=== PATIENT | female | born 1970 | race Caucasian/White ===

== ENCOUNTER → 2017-12-07 09:33 | Outpatient (CLI) | payer OTHER, SELFPAY | DX: Z23 Encounter for immunization (principal) | CPT/HCPCS: 90471; 90686 ==

== ENCOUNTER → 2017-12-10 09:49 | Outpatient (CLI) | payer OTHER, SELFPAY ==
[2017-12-10 11:25] LABS: Add Manual Diff / Slide Review NO; Basophils Percent Auto 0.4 % (0-2); Eosinophils Percent Auto 1.8 % (2-4); Hemoglobin 12.5 g/dL (12.0-16.0); Mean Corpuscular HGB Conc 34.8 % (30-36); Mean Corpuscular Hemoglobin 30.5 PG (26-34); Mean Corpuscular Volume 87.6 fL (80-100); Monocytes Percent Auto 7.4 % (3-14); Neutrophils Absolute Auto 6500 /uL (3000-5900); Neutrophils Percent Auto 67.4 % (50-75); Platelet Count 335 X10^3/uL (150-400); Red Blood Cell Count 4.11 X10^6/uL (4.0-5.2); Red Cell Distribution Width 13.6 % (11.6-14.8); White Blood Cell Count 9.6 X10^3/uL (4.5-11.0)
[2017-12-10 11:38] LABS: Hemoglobin A1C% w Est Avg Glu 5.5 % (4.0-6.0)
[2017-12-10 11:51] LABS: Alanine Aminotransferase 33 IU/L (9-52); Albumin 4.5 g/dL (3.5-5.0); Albumin Globulin Ratio 1.5 (1.0-2.8); Alkaline Phosphatase 71 U/L (38-126); Aspartate Aminotransferase 27 IU/L (14-36); BUN Creatinine Ratio 21.7 (6-22); Bilirubin Total 0.5 mg/dL (0.2-1.3); Blood Urea Nitrogen 13 mg/dL (7-17); Carbon Dioxide 28 mmol/L (22-32); Chloride 101 mmol/L (98-107); Cholesterol 189 mg/dL (140-199); Estimated Glomerular Filt Rate > 60.0 mL/min (>60); Glucose 90 mg/dL (70-100); HDL Cholesterol 64 mg/dL (40-60); HEMOLYSIS < 15 (0-50); LDL Cholesterol Calculated 93 mg/dL (<100); Sodium 139 mmol/L (137-145); Total Protein 7.5 g/dL (6.3-8.2); Triglycerides 159 mg/dL (35-150)
== END ==
PROVIDERS: PCP Internal Medicine; Visit Provider Internal Medicine
DX: R73.02 Impaired glucose tolerance (oral) (principal); I10 Essential (primary) hypertension; E78.00 Pure hypercholesterolemia, unspecified
CPT/HCPCS: 36415; 80053; 80061; 83036; 85025

== ENCOUNTER → 2018-02-10 12:00 | Outpatient (CLI) | payer OTHER, SELFPAY ==
--- NOTE | 2018-02-10 | DI.MG.S_ITS ---
BILATERAL DIGITAL SCREENING MAMMOGRAM 3D/2D WITH CAD: 02/10/2018 CLINICAL: Routine screening. Comparison is made to exams dated: 03/05/2017 mammogram, 02/26/2016 mammogram - [facility], and 01/22/2015 mammogram - [facility]. The tissue of both breasts is heterogeneously dense. This may lower the sensitivity of mammography. Current study was also evaluated with a Computer Aided Detection (CAD) system. No significant masses, calcifications, or other findings are seen in either breast. There has been no significant interval change. IMPRESSION: NEGATIVE There is no mammographic evidence of malignancy. A 1 year screening mammogram is recommended. This exam was interpreted at Station ID: [id number]. NOTE: For mammograms, a report in lay terms will be sent to the patient. Approximately 15% of breast malignancies will not be visualized mammographically. In the management of a palpable breast mass, a negative mammogram must not discourage biopsy of a clinically suspicious lesion. Electronically Signed By: Manuel leger/tristin:02/10/2018 17:39:06 copy to: PIETER RODRIGUEZ letter sent: Normal Exam ACR BI-RADS Category 1: Negative 3341F
== END ==
PROVIDERS: Visit Provider Obstetrics & Gynecology
DX: Z12.31 Encounter for screening mammogram for malignant neoplasm of breast (principal)
CPT/HCPCS: 77063; 77067

== ENCOUNTER → 2018-10-27 08:50 | Outpatient (CLI) | payer OTHER, SELFPAY ==
[2018-10-27 09:13] LABS: Add Manual Diff / Slide Review NO; Basophils Absolute Auto 0 /uL (0-100); Basophils Percent Auto 0.4 % (0-2); Eosinophils Absolute Auto 200 /uL (0-450); Eosinophils Percent Auto 1.9 % (2-4); Hematocrit 40.2 % (36-46); Hemoglobin 13.6 g/dL (12.0-16.0); Lymphocytes Absolute Auto 1700 /uL (1100-4500); Lymphocytes Percent Auto 20.5 % (25-40); Mean Corpuscular HGB Conc 33.8 % (30-36); Mean Corpuscular Hemoglobin 29.4 PG (26-34); Mean Corpuscular Volume 86.9 fL (80-100); Monocytes Absolute Auto 600 /uL (0-900); Monocytes Percent Auto 7.5 % (3-14); Neutrophils Absolute Auto 5800 /uL (1500-7000); Neutrophils Percent Auto 69.7 % (50-75); Platelet Count 374 X10^3/uL (150-400); Red Blood Cell Count 4.62 X10^6/uL (4.0-5.2); Red Cell Distribution Width 13.8 % (11.6-14.8); White Blood Cell Count 8.3 X10^3/uL (4.5-11.0)
[2018-10-27 09:24] LABS: Hemoglobin A1C% w Est Avg Glu 5.5 % (4.0-6.0)
[2018-10-27 09:27] LABS: BUN Creatinine Ratio 26.7 (6-22); Blood Urea Nitrogen 16 mg/dL (7-17); Calcium 9.3 mg/dL (8.4-10.2); Carbon Dioxide 24 mmol/L (22-32); Chloride 100 mmol/L (98-107); Cholesterol 193 mg/dL (140-199); Estimated Glomerular Filt Rate > 60.0 mL/min (>60); Glucose 109 mg/dL (70-100); HDL Cholesterol 52 mg/dL (40-60); HEMOLYSIS < 15 (0-50); LDL Cholesterol Calculated 117 mg/dL (<100); Potassium 3.8 mmol/L (3.4-5.1); Sodium 136 mmol/L (137-145); Triglycerides 121 mg/dL (35-150)
[2018-10-27 10:08] LABS: TSH w/ Reflex to FT4 2.46 uIU/mL (0.47-4.68)
== END ==
PROVIDERS: Visit Provider Internal Medicine
DX: I10 Essential (primary) hypertension (principal); R73.01 Impaired fasting glucose; E03.9 Hypothyroidism, unspecified; R00.2 Palpitations
CPT/HCPCS: 36415; 80048; 80061; 83036; 84443; 85025

== ENCOUNTER → 2019-02-13 15:30 | Outpatient (CLI) | payer OTHER, SELFPAY ==
--- NOTE | 2019-02-13 | DI.MG.S_ITS ---
BILATERAL DIGITAL SCREENING MAMMOGRAM 3D/2D WITH CAD: 02/13/2019 CLINICAL: Routine screening. Comparison is made to exams dated: 02/10/2018 mammogram, 03/05/2017 mammogram, 02/26/2016 mammogram, 01/10/2015 mammogram, 01/08/2014 mammogram, and 01/06/2013 mammogram - [facility]. The tissue of both breasts is heterogeneously dense. This may lower the sensitivity of mammography. Current study was also evaluated with a Computer Aided Detection (CAD) system. No significant masses, calcifications, or other findings are seen in either breast. There has been no significant interval change. IMPRESSION: NEGATIVE There is no mammographic evidence of malignancy. A 1 year screening mammogram is recommended. This exam was interpreted at Station ID: [id number]. NOTE: For mammograms, a report in lay terms will be sent to the patient. Approximately 15% of breast malignancies will not be visualized mammographically. In the management of a palpable breast mass, a negative mammogram must not discourage biopsy of a clinically suspicious lesion. Electronically Signed By: Slim romero/tristin:02/13/2019 18:12:33 copy to: PIETER RODRIGUEZ letter sent: Normal Exam ACR BI-RADS Category 1: Negative 3341F
== END ==
PROVIDERS: Visit Provider Obstetrics & Gynecology
DX: Z12.31 Encounter for screening mammogram for malignant neoplasm of breast (principal)
CPT/HCPCS: 77063; 77067

== ENCOUNTER → 2019-05-12 15:05 | Outpatient (CLI) | payer OTHER, SELFPAY ==
--- NOTE | 2019-05-12 15:06 | DI.US.S_ITS ---
PROCEDURE: US PELVIC COMPLETE INDICATIONS: MILDLY ENLARGED UTERUS PALPATED ON CLINICAL EXAM TECHNIQUE: Real-time scanning was performed of the pelvic organs, with image documentation. Additional endovaginal scanning was necessary due to incomplete visualization of the adnexal and endometrial structures by transabdominal scanning. COMPARISON: None. FINDINGS: Transabdominal scanning: Limited scanning through the kidneys shows no hydronephrosis. No pathologic free abdominal or pelvic fluid. Endovaginal scanning: Uterus: Uterus is normal in size at 6.2 x 7.1 x 7.6 cm. The endometrium measures 8 mm in combined thickness. There is myometrial heterogeneity consistent with multiple small fibroids are Ovaries: The right ovary measures 2.5 x 1.4 x 2.3 cm and the left measures 2.0 x 1.3 x 2.8 cm. IMPRESSION: Multiple small fibroids within the myometrium, normal endometrial lining thickness, normal ovaries bilaterally. Dictated by: Rajendra Barth M.D. on 05/12/2019 at 16:34 Approved by: Rajendra Barth M.D. on 05/12/2019 at 16:36
== END ==
PROVIDERS: PCP Internal Medicine; Referring Provider Internal Medicine; Visit Provider Obstetrics & Gynecology
DX: N85.2 Hypertrophy of uterus (principal); N92.6 Irregular menstruation, unspecified; D25.9 Leiomyoma of uterus, unspecified
CPT/HCPCS: 76830; 76856

== ENCOUNTER → 2019-07-21 10:13 | Outpatient (CLI) | payer OTHER, SELFPAY ==
--- NOTE | 2019-07-21 10:15 | DI.US.S_ITS ---
ULTRASOUND OF RIGHT BREAST AND AXILLA: 07/21/2019 CLINICAL: Bloody nipple discharge right breast. Comparison is made to exams dated: 07/21/2019 mammogram, 02/13/2019 mammogram, 02/10/2018 mammogram, 03/05/2017 mammogram - [facility], and 01/22/2015 ultrasound - [facility]. Color flow and real-time ultrasound of the right breast axilla were performed. Jones scale images of the real-time examination were reviewed. No significant abnormalities were seen sonographically in the right breast or the right axilla. IMPRESSION: INCOMPLETE: NEEDS ADDITIONAL IMAGING EVALUATION There is no abnormality seen in the right breast to correspond with the area of clinical concern and bloody discharge from the nipple in the sub-areolar and anterior depth, however, breast MRI is recommended for further evaluation. This exam was interpreted at Station ID: [id number]. Electronically Signed By: Jem Escobedo M.D. aty/:07/21/2019 19:22:36 letter sent: Need MRI Ultrasound BI-RADS: 0 Indeterminate
--- NOTE | 2019-07-21 10:15 | DI.MG.S_ITS ---
UNILATERAL RIGHT DIGITAL DIAGNOSTIC MAMMOGRAM 3D/2D: 07/21/2019 CLINICAL: Right discharge. Comparison is made to exams dated: 02/13/2019 mammogram, 02/10/2018 mammogram, and 03/05/2017 mammogram - [facility]. The tissue of right breast is heterogeneously dense. This may lower the sensitivity of mammography. No significant masses, calcifications, or other findings are seen in the right breast. IMPRESSION: INCOMPLETE: NEEDS ADDITIONAL IMAGING EVALUATION There is no abnormality seen in the right breast to correspond with the area of clinical concern and discharge from the nipple in the sub-areolar and anterior depth, however, ultrasound is recommended. The recommended breast ultrasound is scheduled to immediately follow this examination. This exam was interpreted at Station ID: [id number]. NOTE: For mammograms, a report in lay terms will be sent to the patient. Approximately 15% of breast malignancies will not be visualized mammographically. In the management of a palpable breast mass, a negative mammogram must not discourage biopsy of a clinically suspicious lesion. Electronically Signed By: Jem Escobedo M.D. aty/:07/21/2019 10:46:33 ACR BI-RADS Category 0: Incomplete 3340F
== END ==
PROVIDERS: PCP Internal Medicine; Referring Provider Obstetrics & Gynecology; Visit Provider Obstetrics & Gynecology
DX: R92.8 Other abnormal and inconclusive findings on diagnostic imaging of breast (principal); N64.52 Nipple discharge
CPT/HCPCS: 76642; 77065; G0279

== ENCOUNTER → 2019-08-08 09:06 | Outpatient (CLI) | payer OTHER, SELFPAY ==
--- NOTE | 2019-08-08 09:08 | DI.MRI.S_ITS ---
BREAST MRI OF BOTH BREASTS: 08/08/2019 CLINICAL: Right breast abnormality. TECHNIQUE: The patient was placed prone in a dedicated breast imaging coil. Precontrast axial STIR and 3D FLASH without fat saturation sequences were obtained. Both before and after bolus injection of contrast, sequential 1-minute axial 3D FLASH with fat saturation sequences for 3 time points, with subtraction images and maximum intensity projections (MIP's) generated. Delayed sagittal FLASH images with fat saturation were also obtained. Computer-aided detection, including computer algorithm analysis of MRI image data for lesion detection and characterization, pharmacokinetic analysis, with further physician review for interpretation, was performed. COMPARISON: 07/21/2019 ultrasound, 07/21/2019, 03/05/2017, 02/26/2016, 02/13/2019, and 02/10/2018 [facility]. FINDINGS: Image quality: Excellent. There is mild-moderate background parenchymal enhancement. There are heterogeneous fibroglandular tissue involving the bilateral breasts. Right breast: No suspicious mass, architectural distortion, or non-mass enhancement. More prominent area of background parenchymal enhancement is noted in the posterior depth of the lateral right breast correlating with mammographic findings of dense fibroglandular tissue. As noted on comparison mammogram, there is more asymmetric distribution of dense fiber glandular tissue in the right breast compared to the left. Multiple scattered breast cysts are noted in the posterior depth of the right breast, lateral aspect. The largest measures approximately 1.9 x 1.3 cm in maximum transverse dimension. There is a segment of mildly ectatic duct involving the subareolar right breast which demonstrates T1 hyperintensity on pre-contrast images. No visualized enhancement which is confirmed on postcontrast subtraction images. A senior human resources representative image is seen on axial precontrast T1 axial image 52, series 4. No evidence to suggest internal solid components or internal enhancement. No associated skin or nipple abnormalities seen. Left breast: No suspicious mass, architectural distortion, or non-mass enhancement. A few scattered breast cysts are noted in the posterior depth of the lateral left breast correlating with region of dense fibroglandular tissue was seen on comparison mammogram. The largest cyst measures approximately 7 mm in size. No skin or nipple abnormalities. Miscellaneous: No axillary or internal mammary chain adenopathy. Visualized portions of the chest and upper abdomen appear unremarkable. Normal bone marrow signal intensity. IMPRESSION: PROBABLY BENIGN 1. Short segment of mildly ectatic duct in the subareolar right breast without evidence for internal solid components or abnormal enhancement. It is T1 hyperintense on precontrast imaging which is suggestive of proteinaceous/hemorrhagic material. This is a probably benign finding. Recommend continued clinical surveillance to include consideration of surgical consultation with followup MRI in 6 months to document stability versus resolution. However, if there is development of any clinically suspicious findings in the interim, recommend further imaging with repeat mammography and ultrasound to start and possible MRI depending on findings. Of note, the patient is due for screening left breast mammograms in 6 months, thus, bilateral mammograms with possible right breast ultrasound is recommended at that time (February 2020). 2. Left breast without MRI evidence for malignancy. 3. Bilateral breast cysts. BIRADS 3, probably benign COMMENT: The imaging literature indicates that a negative contrast breast MRI examination has a high sensitivity and a moderate specificity for detecting and excluding invasive carcinomas to a detection threshold of 3-5 mm; nonetheless, appropriate clinical and mammographic follow-up are recommended. MRI is not sensitive for detecting DCIS (ductal carcinoma in situ) and may not detect large invasive neoplasms that show only minimal enhancement such as mucinous carcinoma. If there are suspicious calcifications or clinically worrisome palpable masses, then biopsy should still be considered. Invasive neoplasms can be hidden by co-existent and benign enhancement caused by mastitis, hormone therapy effects, radiation therapy, , and recent biopsy or surgery. False positive examinations can occur in a number of circumstances, including breasts that have recently been subject to invasive procedures and those that contain atypical ductal hyperplasia, hormonally stimulated glandular tissue, fat necrosis, or radial scars. A follow-up breast MRI in 6 months is recommended to demonstrate stability. This exam was interpreted at Station ID: [id number]. Electronically Signed By: Jem Escobedo M.D. aty/:08/10/2019 10:05:15 ACR BI-RADS Category 3: Probably benign 3343F
== END ==
PROVIDERS: PCP Internal Medicine; Referring Provider Obstetrics & Gynecology; Visit Provider Obstetrics & Gynecology
DX: N64.52 Nipple discharge (principal); N60.41 Mammary duct ectasia of right breast; N60.01 Solitary cyst of right breast; N60.02 Solitary cyst of left breast
CPT/HCPCS: 77049; A9579

== ENCOUNTER → 2019-11-01 08:01 | Outpatient (CLI) | payer OTHER, SELFPAY ==
[2019-11-01 08:35] LABS: Add Manual Diff / Slide Review NO; Basophils Absolute Auto 0 /uL (0-100); Basophils Percent Auto 0.4 % (0-2); Eosinophils Absolute Auto 100 /uL (0-450); Eosinophils Percent Auto 1.9 % (2-4); Hemoglobin 12.8 g/dL (12.0-16.0); Lymphocytes Absolute Auto 1500 /uL (1100-4500); Lymphocytes Percent Auto 24.8 % (25-40); Mean Corpuscular HGB Conc 33.6 % (30-36); Mean Corpuscular Hemoglobin 30.1 PG (26-34); Mean Corpuscular Volume 89.6 fL (80-100); Monocytes Absolute Auto 500 /uL (0-900); Monocytes Percent Auto 8.6 % (3-14); Neutrophils Absolute Auto 3800 /uL (1500-7000); Neutrophils Percent Auto 64.3 % (50-75); Platelet Count 318 X10^3/uL (150-400); Red Blood Cell Count 4.24 X10^6/uL (4.0-5.2); Red Cell Distribution Width 13.6 % (11.6-14.8); White Blood Cell Count 5.9 X10^3/uL (4.5-11.0)
[2019-11-01 08:37] LABS: Alanine Aminotransferase 18 IU/L (<35); Albumin 4.5 g/dL (3.5-5.0); Albumin Globulin Ratio 1.7 (1.0-2.8); Alkaline Phosphatase 54 U/L (38-126); Aspartate Aminotransferase 29 IU/L (14-36); BUN Creatinine Ratio 20.9 (6-22); Bilirubin Total 0.5 mg/dL (0.2-1.3); Blood Urea Nitrogen 14 mg/dL (7-17); Calcium 9.3 mg/dL (8.4-10.2); Carbon Dioxide 26 mmol/L (22-32); Chloride 102 mmol/L (98-107); Cholesterol 145 mg/dL (140-199); Estimated Glomerular Filt Rate > 60.0 mL/min (>60); Globulin 2.7 g/dL (1.7-4.1); Glucose 101 mg/dL (70-100); HDL Cholesterol 61 mg/dL (40-60); HEMOLYSIS < 15 (0-50); LDL Cholesterol Calculated 65 mg/dL (<100); Potassium 4.1 mmol/L (3.4-5.1); Sodium 135 mmol/L (137-145); Total Protein 7.2 g/dL (6.3-8.2); Triglycerides 94 mg/dL (35-150)
[2019-11-01 08:56] LABS: Hemoglobin A1C% w Est Avg Glu 5.2 % (4.0-6.0)
[2019-11-01 09:40] LABS: TSH w/ Reflex to FT4 2.02 uIU/mL (0.47-4.68)
== END ==
PROVIDERS: PCP Internal Medicine; Referring Provider Internal Medicine; Visit Provider Internal Medicine
DX: R07.9 Chest pain, unspecified (principal); E78.2 Mixed hyperlipidemia; R73.01 Impaired fasting glucose; E03.9 Hypothyroidism, unspecified
CPT/HCPCS: 36415; 80053; 80061; 83036; 84443; 85025

== ENCOUNTER → 2019-11-18 14:15 | Outpatient (CLI) | payer OTHER, SELFPAY ==
[2019-11-21 15:45] LABS: COVID19 Sendout Not Detected (Not Detect)
== END ==
PROVIDERS: PCP Internal Medicine; Visit Provider Physician Assistant
DX: Z11.59 Encounter for screening for other viral diseases (principal)
CPT/HCPCS: 87635

== ENCOUNTER → 2019-11-21 13:44 | Outpatient (CLI) | payer OTHER, SELFPAY ==
[2019-11-21 14:25] LABS: COVID19 -Nasal RAPID Negative (Negative)
--- NOTE | 2019-11-22 18:18 | DI.NM.S_ITS ---
DATE OF SERVICE: 11/21/2019 PROCEDURE: Exercise perfusion study. INDICATION: Chest pain with underlying hypertension, hyperlipidemia, family history of myocardial infarction. RADIOPHARMACEUTICAL: 25.5 millicurie technetium-99m Myoview IV was injected at stress and 25.7 millicurie technetium-99m Myoview IV was injected at rest. CARDIAC STRESS: The patient underwent exercise perfusion study under the supervision of an attending staff. She walked on Matt protocol for 12 minutes and achieved 101 percent of target heart rate, 12.8 METS of workload and functional aerobic impairment of -11 percent. Baseline blood pressure 138/80. Peak blood pressure 168/100. No anginal symptoms. Baseline EKG revealed sinus rhythm. During stress, there were no convincing ischemic changes. No significant arrhythmia seen. RAW DATA: There was breast shadow seen. GATED STUDY: Resting LV ejection fraction is 73 percent and stress LV ejection fraction is 77 percent. No obvious wall motion abnormalities. Resting end- diastolic volume 135 mL. Lung/heart ratio 0.30, which is within normal limits. On visual inspection, I do not see any significant transient ischemic dilatation. MYOCARDIAL PERFUSION: Stress supine, stress supine and stress prone images were compared to each other. Stress supine images revealed minimally decreased perfusion of anterior apex, which got resolved during prone images. Overall, no convincing ischemia or infarction pattern seen. CONCLUSION: I will call this study a normal myocardial perfusion study with some evidence of breast tissue attenuation artifact, which got improved. Excellent exercise tolerance. The patient walked on Matt protocol for 12 minutes. Functional aerobic impairment -11 percent. The patient had exercise perfusion study in December,, at that time she was able to walk for about 6 minutes and 50 seconds. At that time also, she had normal myocardial perfusion. Delia Castro - CHUY/james/steven doc#: [id number]/job#: [id number] dd: 11/22/2019 17:17:00 dt: 11/22/2019 18:06:00 DICTATING MD/COPIES TO: Mainor Coreas MD COPIES MNE: AMANDA;
== END ==
PROVIDERS: PCP Internal Medicine; Referring Provider Internal Medicine; Visit Provider Internal Medicine
DX: R07.9 Chest pain, unspecified (principal); I10 Essential (primary) hypertension; E78.5 Hyperlipidemia, unspecified; Z11.59 Encounter for screening for other viral diseases; Z82.49 Family history of ischemic heart disease and other diseases of the circulatory system
CPT/HCPCS: 78452; 87635; 93017; A9502